=== PATIENT | female | born 2000 | race Caucasian/White ===

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

== ENCOUNTER 2024-08-04 10:46 | Inpatient (IN) ==
[2024-08-04] MEDS: Lactated Ringers 1000 ml BAG 1,000 ML IV ONE (12:50)
[2024-08-04 13:29] LABS: ABS Lymphocytes 2.1 10^3/uL (1.0-4.8); ABS Monocytes 0.9 10^3/uL (0.0-0.9); ABS Neutrophils 8.3 10^3/uL (1.5-7.6); ABS Nucleated RBC 0.01 10^3/ul; Eosinophil % 0.2 %; Hematocrit 35.6 % (35-45); Hemoglobin 12.3 g/dL (11.5-14.3); Lymphocyte % 18.4 %; Mean Corpuscular Hemoglobin 32.7 pg (27-33); Mean Corpuscular Hgb Conc 34.6 g/dL (31-36); Mean Corpuscular Volume 94.4 fL (80-97); Mean Platelet Volume 9.9 fL (7.5-11.2); Nucleated Red Blood Cells % 0.1 %/100WBC (0.0-0.8); Platelet Count 200 10^3/uL (150-450); Red Blood Count 3.77 10^6/uL (3.63-4.92); White Blood Count 11.3 10^3/uL (3.8-11.8)
[2024-08-04 13:47] LABS: Urine Creatinine Concentration 215.42 mg/dL (20.00-320.00); Urine TP Creat Ratio 0.1 mg/mg
[2024-08-04 14:18] LABS: Albumin 3.7 g/dL (3.5-5.7); Albumin/Globulin Ratio 1.2 (1-3); Calcium 9.5 mg/dL (8.6-10.3); Creatinine, Serum 0.62 mg/dL (0.51-0.95); Potassium 4.4 mmol/L (3.5-5.0); Total Bilirubin 0.3 mg/dL (0.2-1.0); Total Protein 6.7 g/dL (6.4-8.9); eGFR CKD-EPI 127.5 (>60)
[2024-08-04] MEDS ORDERED: Lidocaine 1% VIAL 10 MG/ML 30 ML VIAL INJ PRN (14:27)
[2024-08-04] MEDS: OBEPIDURAL (200 ML) 200 ML EPIDURAL ONE (15:09)
[2024-08-04 15:10] LABS: Urine Benzodiazepine Screen None Detected (None Detect); Urine Cannabinoids Screen None Detected (None Detect); Urine Opiates Screen None Detected (None Detect)
[2024-08-04] MEDS ORDERED: Phenylephrine 40 mcg/mL 10mL (400mcg) SYRINGE IV PUSH PRN ×2 (15:27)
[2024-08-04 16:44] LABS: Urine Appearance Clear; Urine Bilirubin Negative (Negative); Urine Blood 1+ (Negative); Urine Color Light-Yellow; Urine Glucose Negative (Negative); Urine Ketones Trace (Negative); Urine Nitrite Negative (Negative); Urine Protein Negative (Negative); Urine Specific Gravity 1.016 (1.002-1.030); Urine Urobilinogen Negative (Negative); Urine pH 6.5 (5.0-8.0)
[2024-08-04] MEDS: Lactated Ringers 1000 ml BAG 1,000 ML IV SCH (17:03)
[2024-08-04 17:14] LABS: Urine Bacteria Absent /HPF (Absent); Urine Red Blood Cell 3+(>10/hpf) /HPF (0-Trace); Urine Squamous Epithelial Cell Present /HPF (Absent); Urine White Blood Cell Trace(0-5/hpf) /HPF (0-Trace)
[2024-08-05] MEDS: OBEPIDURAL (200 ML) 200 ML EPIDURAL SCH (04:20)
[2024-08-05] MEDS: Oxytocin in LR 20,000 MILLI.UNIT/1,000 ML BAG IV SCH (07:18)
[2024-08-05] MEDS: Lactated Ringers 1000 ml BAG 1,000 ML IV SCH (10:37)
[2024-08-05] MEDS ORDERED: ROPIVACAINE 5 MG/ML 30 ML BTL (0.5%) ONE (17:25)
[2024-08-05] MEDS: ceFAZolin 2 GM PREMIX 2 GM/50 ML BAG IVPB ONE (19:44)
[2024-08-05] MEDS ORDERED: Naloxone 0.4 mg VIAL 0.4 mg/ml 1 ml VIAL IV PUSH PRN (19:45)
[2024-08-05] MEDS ORDERED: Ondansetron 4 mg VIAL 2 MG/ML 2 ml VIAL IV PRN (19:45)
[2024-08-05] MEDS ORDERED: Metoclopramide 5 MG/ML VIAL (10 mg) IV PRN (19:45)
[2024-08-05] MEDS ORDERED: Acetaminophen IV 1 GM/100ML 1,000 MG/100 ML BAG IV PRN (19:45)
[2024-08-05] MEDS ORDERED: Ondansetron 4 mg VIAL 2 MG/ML 2 ml VIAL ONE (19:48)
[2024-08-05] MEDS ORDERED: Dexamethasone IV 4 MG/ML VIAL 1 ml VIAL ONE (19:48)
[2024-08-05] MEDS ORDERED: Lidocaine 2% w/ EPI 1:200,000 MPF 20 ML SDV VIAL ONE (19:48)
[2024-08-05] MEDS: Sodium Citrate/Citric Acid LIQ 15 ML UDC PO PRN (19:49)
[2024-08-05] MEDS ORDERED: Morphine PF AMP (0.5MG/ML) 5 MG/10 ML AMP ONE (20:10)
[2024-08-05] MEDS ORDERED: Oxytocin 10 UNITS/ML 1 ML VIAL ONE ×2 (20:19→20:47)
[2024-08-05] MEDS ORDERED: Acetaminophen IV 1 GM/100ML 1,000 MG/100 ML BAG IV ONE (20:31)
[2024-08-05] MEDS ORDERED: Glycerin ADULT 2.4 gm SUPP PR PRN (20:54)
[2024-08-05] MEDS ORDERED: Witch Hazel PAD JAR TOPICAL PRN (20:54)
[2024-08-05] MEDS ORDERED: Dibucaine 1% OINT 28.35 GM TUBE PR PRN (20:54)
[2024-08-05] MEDS ORDERED: Lactated Ringers 1000 ml BAG 1,000 ML IV SCH (21:00)
[2024-08-06] MEDS: Sodium Citrate/Citric Acid LIQ 15 ML UDC PO ONE (04:36)
[2024-08-06 06:53] LABS: ABS Lymphocytes 0.9 10^3/uL (1.0-4.8); ABS Monocytes 1.2 10^3/uL (0.0-0.9); ABS Neutrophils 15.2 10^3/uL (1.5-7.6); Hematocrit 25.2 % (35-45); Hemoglobin 8.7 g/dL (11.5-14.3); Lymphocyte % 5.2 %; Mean Corpuscular Hemoglobin 32.6 pg (27-33); Mean Corpuscular Hgb Conc 34.3 g/dL (31-36); Mean Platelet Volume 10.1 fL (7.5-11.2); Platelet Count 134 10^3/uL (150-450); Red Blood Count 2.66 10^6/uL (3.63-4.92); Red Cell Distribution Width 14.1 % (12-17); White Blood Count 17.4 10^3/uL (3.8-11.8)
[2024-08-06] MEDS: Lidocaine 1.5% EPI 1:200,000 30 ML SDV ONE (10:25)
[2024-08-06] MEDS: Buffered Lidocaine 1% SYRIN 1 ml INTRADERM ONE (10:25)
[2024-08-06] MEDS: Lactated Ringers 1000 ml BAG 1,000 ML IV ONE (10:25)
[2024-08-06] MEDS: Bupivacaine 0.25% SDV PF 10 ML VIAL INJ ONE ×2 (11:04)
[2024-08-06] MEDS: Phenylephrine 40 mcg/mL 10mL (400mcg) SYRINGE ONE (11:04)
[2024-08-07 07:44] VITALS: BP 105/54
== END 2024-08-07 15:00 | disposition home or self-care (01) | DRG 540 ==
LOC: MCHOBOUT 10:46 → MCHOB 14:12
PROVIDERS: ADMIT Midwife; ATTEND Midwife